=== PATIENT | male | born 1945 | race Caucasian/White ===

== ENCOUNTER 2017-02-25 17:32 | Emergency (ER) | payer OTHER ==
[~2017-02-25] VITALS: Ht 180.3 cm; Wt 119.3 kg
[2017-02-25] MEDS ORDERED: SODIUM CHLORIDE 0.9% 100 ML ONE (17:47)
[2017-02-25] MEDS ORDERED: IOVERSOL 350 MG/ML 100 ML VIAL ONE (17:47)
[2017-02-25] MEDS ORDERED: CALC25 PO (17:48)
[2017-02-25] MEDS ORDERED: SEVEC800 PO (17:48)
[2017-02-25] MEDS ORDERED: ALLO100T PO (17:48)
[2017-02-25] MEDS ORDERED: WARF5 PO (17:48)
[2017-02-25] MEDS ORDERED: TAMS0.4C32 PO (17:48)
[2017-02-25] MEDS ORDERED: LOSA50TA37 PO (17:48)
[2017-02-25] MEDS ORDERED: FLUT44HFA IH (17:48)
[2017-02-25] MEDS ORDERED: FURO80 PO (17:48)
[2017-02-25] MEDS ORDERED: CHOL200016 PO (17:48)
[2017-02-25] MEDS ORDERED: ATOR20TA86 PO (17:48)
[2017-02-25] MEDS ORDERED: CLON.2 PO (17:48)
[2017-02-25] MEDS ORDERED: DILT30 PO (17:48)
[2017-02-25] MEDS ORDERED: HYDR-2924 PO (17:48)
[2017-02-25] MEDS ORDERED: FERG325 PO (17:48)
[2017-02-25] MEDS ORDERED: METO50 PO (17:48)
[2017-02-25] MEDS ORDERED: QUET100T PO (17:48)
[2017-02-25] MEDS ORDERED: FINA5TAB41 PO (17:48)
[2017-02-25] MEDS ORDERED: LEVO88TA4 PO (17:48)
[2017-02-25] MEDS ORDERED: VENL-68 PO (17:48)
[2017-02-25 17:55] LABS: EOSINOPHILS % (AUTO) 0 % (1.0-6.0); HEMATOCRIT 32.6 % (41-53); HEMOGLOBIN 11.1 g/dL (13.5-17.5); LYMPHOCYTES # (AUTO) 0.4 K/uL (1.0-4.8); LYMPHOCYTES % (AUTO) 3.1 % (22.0-44.0); MEAN CORPUSCULAR HEMOGLOBIN 33.3 pg (26.0-34.0); MEAN CORPUSCULAR VOLUME 98 fL (80-100); MONOCYTES # (AUTO) 0.8 K/uL (0.1-1.0); MONOCYTES % (AUTO) 6.2 % (2.0-9.0); NEUTROPHILS % (AUTO) 90.7 % (40.0-70.0); PLATELET COUNT (AUTO) 217 K/uL (150-450); RED BLOOD CELL COUNT(AUTO) 3.32 MIL/uL (4.50-5.90); RED CELL DISTRIBUTION WIDTH 16.1 % (11.5-14.5); WHITE BLOOD COUNT (AUTO) 13.3 K/uL (4.5-11.0)
[2017-02-25 18:04] LABS: INR 1.7 (0.9-1.1); PROTHROMBIN TIME 18.2 SEC (9.4-11.6)
[2017-02-25 18:10] LABS: ANION GAP 16 mmol/L (8-16); CALCIUM, TOTAL 9.5 mg/dL (8.8-10.5); CARBON DIOXIDE 21 mmol/L (22-29); CHLORIDE 110 mmol/L (98-107); CREATININE 6.11 mg/dL (0.60-1.30); GLOMERULAR FILTR. RATE CALC 9 mL/min (>60); POTASSIUM 3.7 mmol/L (3.5-5.1); SODIUM SERUM 147 mmol/L (136-145); UREA NITROGEN, BLOOD 45 mg/dL (7-18)
[2017-02-25 18:35] LABS: ALANINE AMINOTRANSFERASE 24 U/L (12-78); ALBUMIN 4.1 g/dL (3.4-5.0); ASPARTATE AMINOTRANSFERASE 19 U/L (15-37); BILIRUBIN,TOTAL 0.7 mg/dL (0.1-1.0); CREATINE KINASE MB 4.1 ng/mL (0-5); CREATINE KINASE, TOTAL 174 U/L (39-308); TOTAL PROTEIN, SERUM 7.7 g/dL (6.4-8.2)
[2017-02-25 18:50] LABS: THYROID STIMULATING HORMONE 3.25 uIU/mL (0.36-3.74)
[2017-02-25] MEDS ORDERED: LABETALOL HCL 5 MG/ML 20 ML VIAL IVP ONE ×2 (19:00→21:15)
[2017-02-25] MEDS ORDERED: CloNIDine HCL 0.2 MG TABLET PO ONE (20:30)
[2017-02-25 23:00] VITALS: BP 172/112
== END 2017-02-25 23:00 | disposition short-term general hospital (02) ==
LOC: EMS 17:34
DX: R41.82 Altered mental status, unspecified (principal); I10 Essential (primary) hypertension; R29.810 Facial weakness; E03.9 Hypothyroidism, unspecified; F32.9 Major depressive disorder, single episode, unspecified; Z91.048 Other nonmedicinal substance allergy status; E11.9 Type 2 diabetes mellitus without complications; E78.5 Hyperlipidemia, unspecified; Z88.2 Allergy status to sulfonamides; Z88.6 Allergy status to analgesic agent; Z79.01 Long term (current) use of anticoagulants
CPT/HCPCS: 36415; 70450; 70496; 71010; 74176; 80053; 82140; 82550; 82553; 84443; 84484; 85025; 85610; 85730; 87040; 93005; 96374; 99291; J3490; J7050; Q9967